=== PATIENT | female | born 1965 | race Caucasian/White ===

== ENCOUNTER → 2019-07-10 14:16 | Outpatient (BNVA) | payer OTHER, SELFPAY | PROVIDERS: Family Provider Family Medicine; Visit Provider Specialist | DX: G35 Multiple sclerosis (principal); Z79.891 Long term (current) use of opiate analgesic | CPT/HCPCS: 99212 ==

== ENCOUNTER → 2019-11-19 11:05 | Outpatient (BNVA) | payer OTHER, SELFPAY | PROVIDERS: Family Provider Family Medicine; PCP Family Medicine; Visit Provider Family Medicine | DX: E55.9 Vitamin D deficiency, unspecified (principal); E03.9 Hypothyroidism, unspecified | CPT/HCPCS: 80053; 80061; 82306; 84439; 84443; 84480; 85025 ==

== ENCOUNTER → 2019-12-04 13:56 | Outpatient (BNVA) | payer OTHER, SELFPAY | PROVIDERS: Family Provider Family Medicine; Visit Provider Nurse Practitioner | DX: M79.671 Pain in right foot (principal) | CPT/HCPCS: 73630 ==

== ENCOUNTER → 2019-12-31 14:38 | Outpatient (BNVA) | payer OTHER, SELFPAY | PROVIDERS: Family Provider Family Medicine; Visit Provider Specialist | DX: G35 Multiple sclerosis (principal); M72.2 Plantar fascial fibromatosis | CPT/HCPCS: 99214 ==

== ENCOUNTER → 2020-02-07 11:33 | Outpatient (BNVA) | payer OTHER, SELFPAY | PROVIDERS: Family Provider Family Medicine; Visit Provider Nurse Practitioner Family | DX: Z11.59 Encounter for screening for other viral diseases (principal); J06.9 Acute upper respiratory infection, unspecified | CPT/HCPCS: 87635 ==

== ENCOUNTER 2020-03-12 06:00 | Outpatient (RCR) | payer OTHER, SELFPAY | END 2020-03-28 23:59 | disposition home or self-care (01) | LOC: SPT 06:00 | PROVIDERS: PCP Family Medicine; Referring Provider Podiatrist Foot & Ankle Surgery; Visit Provider Podiatrist Foot & Ankle Surgery | DX: M72.2 Plantar fascial fibromatosis (principal) | CPT/HCPCS: 97035; 97110; 97140; 97161 ==

== ENCOUNTER 2020-03-29 06:00 | Outpatient (RCR) | payer OTHER, SELFPAY | END 2020-04-27 23:59 | disposition home or self-care (01) | LOC: SPT 06:00 | PROVIDERS: PCP Family Medicine; Referring Provider Podiatrist Foot & Ankle Surgery; Visit Provider Podiatrist Foot & Ankle Surgery | DX: M72.2 Plantar fascial fibromatosis (principal) | CPT/HCPCS: 97035; 97140 ==

== ENCOUNTER 2020-05-07 07:38 | Outpatient (CLI) | payer OTHER, SELFPAY ==
--- NOTE | 2020-05-07 07:50 | MM_ITS ---
WS: [id number] BILATERAL DIGITAL SCREENING MAMMOGRAPHY WITH CAD CLINICAL INFORMATION: SCREENING HISTORY: Screening mammogram. No current complaints. COMPARISON: TECHNIQUE: Bilateral CC and MLO views. FINDINGS: Scattered fibroglandular densities bilaterally. Stable asymmetric breast tissue upper outer left [address]. No suspicious focal mass, asymmetry, calcifications, or architectural distortion. No evidence of malignancy. MM/[id number] IMPRESSION: BI-RADS: 1-Negative FOLLOW UP: 1 Year Follow-up Recommend return to annual screening mammography.
== END 2020-05-07 07:39 | disposition home or self-care (01) ==
LOC: RADSHAW 07:42
PROVIDERS: PCP Family Medicine; Visit Provider Family Medicine
DX: Z12.31 Encounter for screening mammogram for malignant neoplasm of breast (principal)
CPT/HCPCS: 77067

== ENCOUNTER → 2020-12-25 13:45 | Outpatient (BNVA) | payer OTHER, SELFPAY | PROVIDERS: PCP Family Medicine; Visit Provider Family Medicine | DX: E03.9 Hypothyroidism, unspecified (principal) | CPT/HCPCS: 84439; 84443 ==

== ENCOUNTER → 2020-12-29 08:52 | Outpatient (BNVA) | payer OTHER, SELFPAY | PROVIDERS: PCP Family Medicine; Visit Provider Specialist | DX: G35 Multiple sclerosis (principal); M72.2 Plantar fascial fibromatosis | CPT/HCPCS: 99213 ==

== ENCOUNTER 2021-01-25 10:26 | Outpatient (CLI) | payer OTHER, SELFPAY ==
--- NOTE | 2021-01-25 10:37 | USCV_ITS ---
Gudelia Peoples Age: 55 Gender: F : 1965 Exam Date: 01/25/2021 10:51 Ordering Phys: Gale Lorenzana DO Technologist: NIGEL [place] [facility] [place]: BILAT LE SWELLING BP: 139 / 90 HR: 83 Rhythm: Sinus Technical Quality: Adequate MEASUREMENTS (Male / Female) Normal Values 2D ECHO LV Diastolic Diameter PLAX 3.4 cm 4.2 - 5.9 / 3.9 - 5.3 cm LV Systolic Diameter PLAX 2.1 cm IVS Diastolic Thickness 0.7 cm 0.6 - 1.0 / 0.6 - 0.9 cm IVS Systolic Thickness 0.7 cm LVPW Diastolic Thickness 1.9 cm 0.6 - 1.0 / 0.6 - 0.9 cm LVPW Systolic Thickness 2.2 cm LVOT Diameter 2.0 cm LV Ejection Fraction 2D Teich 69.0 % LV Ejection Fraction MOD 2C 72.6 % LV Ejection Fraction 2C AL 73.7 % LA Diameter 3.0 cm LA Width 3.1 cm LA Height 3.9 cm RA Width 2.9 cm RA Height 4.0 cm Aorta at Sinotubular Diameter 2.4 cm DOPPLER AV Peak Velocity 136.0 cm/s LVOT Peak Velocity 90.0 cm/s AV Area Cont Eq vti 2.3 cm squared AV Area Cont Eq pk 2.1 cm squared MV Peak Velocity 356.0 cm/s MV Area PHT 3.7 cm squared Mitral E to A Ratio 0.9 MV E' Velocity 41.5 cm/s Mitral E to MV E' Ratio 8.1 Mitral E to LV E' Lateral Ratio 8.5 Mitral E to LV E' Septal Ratio 7.7 TR Peak Velocity 123.7 cm/s TR Peak Gradient 6.1 mmHg TR Mean Velocity 88.4 cm/s TR Mean Gradient 3.1 mmHg TR Velocity Time Integral 23.2 cm RV Acceleration Time 0.1 s RV Ejection Time 0.3 s RV AcT/ET 0.2 FINDINGS Left Ventricle Normal left ventricular cavity size. Normal left ventricular systolic function. No regional wall motion abnormalities. Left ventricular ejection fraction is estimated at 69 %. No regional wall motion abnormalities. Grade I/IV diastolic dysfunction (abnormal relaxation filling pattern), normal to mildly elevated filling pressures. Right Ventricle The right ventricle is normal in size and function. RVSP could not be calculated due to incomplete tricuspid regurgitation velocity profile. Right Atrium The right atrium is normal in size. Left Atrium The left atrium is normal in size. Mitral Valve Moderately thickened mitral valve. Moderate mitral annular calcification. No mitral valve stenosis. Mild mitral valve regurgitation. Aortic Valve Aortic valve sclerosis without stenosis or regurgitation. Tricuspid Valve Structurally normal tricuspid valve without significant stenosis or regurgitation. Pulmonic Valve Structurally normal pulmonic valve without significant stenosis. There is no pulmonic regurgitation. Pericardium Normal pericardium without effusion. Aorta Normal ascending aorta dimension. CONCLUSIONS 1-Normal left ventricular cavity size. Normal left ventricular systolic function. No regional wall motion abnormalities. Left ventricular ejection fraction is estimated at 69 %. No regional wall motion abnormalities. Grade I/IV diastolic dysfunction (abnormal relaxation filling pattern), normal to mildly elevated filling pressures. 2-Moderately thickened mitral valve. Moderate mitral annular calcification. No mitral valve stenosis. Mild mitral valve regurgitation. 3-Aortic valve sclerosis without stenosis or regurgitation. 4-There is no pericardial effusion. 5-Right atrial pressure is around 5 mm of mercury. 6-There are no prior echocardiogram studies to compare. Jovita Chahal MD (Electronically Signed) Final Date: 25 January 2021 21:18 S
== END 2021-01-25 10:27 | disposition home or self-care (01) ==
PROVIDERS: PCP Family Medicine; Visit Provider Family Medicine
DX: R06.01 Orthopnea (principal); M79.89 Other specified soft tissue disorders; I34.0 Nonrheumatic mitral (valve) insufficiency; I35.8 Other nonrheumatic aortic valve disorders
CPT/HCPCS: 80053; 80061; 82306; 83880; 85025; 93306

== ENCOUNTER → 2021-02-26 10:12 | Outpatient (BNVA) | payer OTHER, SELFPAY | PROVIDERS: PCP Family Medicine; Visit Provider Family Medicine | DX: R06.00 Dyspnea, unspecified (principal); G35 Multiple sclerosis; G47.10 Hypersomnia, unspecified; Z68.35 Body mass index [BMI] 35.0-35.9, adult; F17.211 Nicotine dependence, cigarettes, in remission; Z71.89 Other specified counseling | CPT/HCPCS: 80048 ==

== ENCOUNTER → 2021-03-25 15:44 | Outpatient (BNVA) | payer OTHER, SELFPAY | PROVIDERS: PCP Family Medicine; Visit Provider Internal Medicine Cardiovascular Disease | DX: I50.33 Acute on chronic diastolic (congestive) heart failure (principal); R06.00 Dyspnea, unspecified; R06.02 Shortness of breath | CPT/HCPCS: 80048; 83880; 85379 ==

== ENCOUNTER 2021-05-10 06:57 | Outpatient (CLI) | payer OTHER, SELFPAY ==
--- NOTE | 2021-05-10 07:02 | MM_ITS ---
WS: [id number] BILATERAL SCREENING DIGITAL MAMMOGRAM WITH CAD HISTORY: SCREENING COMPARISON: 05/07/2020, 04/26/2019 and 04/11/2017 Bilateral CC and MLO views submitted. Computer aided detection analyzed. Breast composition: There are scattered areas of fibroglandular density. No suspicious masses, microc alcifications or architectural distortion. Long-term stability 6 mm asymmetry seen best on the LEFT M LO projection in the central breast. No suspicious masses or calcifications. MM/[id number] IMPRESSION: BI-RADS: 2-Benign FOLLOW UP: 1 Year Follow-up
== END 2021-05-10 06:58 | disposition home or self-care (01) ==
LOC: RADSHAW 06:59
PROVIDERS: PCP Family Medicine; Visit Provider Family Medicine
DX: Z12.31 Encounter for screening mammogram for malignant neoplasm of breast (principal)
CPT/HCPCS: 77067

== ENCOUNTER 2022-04-04 11:13 | Emergency (ER) | payer BC, SELFPAY ==
[2022-04-04 11:33] VITALS: BP 128/89; BP 97/69; PULSE 108; PULSE 91; RESP 16; TEMP 37.1; TEMP 37.8; O2SAT 97; O2SAT 98
--- NOTE | 2022-04-04 11:51 | W.ED.ABDPA2 ---
HPI - Abdominal Pain General: Chief Complaint: Abdominal Pain Stated Complaint: Dr. Lorenzana sent for abd pain Time Seen by Provider: 04/04/22 11:50 History of Present Illness: Ms. Peoples is a 56-year-old lady with significant past medical history of MS, history of cholecystectomy and appendectomy, thyroid disorder presenting to the emergency department due to right upper quadrant abdominal pain. Onset of symptoms was proximately 3 days ago and subacute. She denies specific provoking event. Right upper quadrant pain with radiation up to the neck and right shoulder and around to the back. Denies associated fevers, nausea, vomiting, change in bowel habits, or urinary symptoms. Chest symptoms have largely resolved however abdominal pain has persisted. Moderate to severe in intensity. Worsened by palpation and movement. No other specific changes in health, exacerbating, or alleviating factors identified. Onset (ago): day(s) Pain Consistency: constant Location: RUQ Severity: moderate Quality: dull Radiation: chest Migration to: no migration Exacerbating factors: movement Relieving factors: nothing Review of Systems General: Reports: 10 or more systems reviewed and unremarkable except in HPI and below PFSH ED PFSH: Medical History Heart murmur History of pyloric stenosis as a child Hypothyroidism Multiple sclerosis Surgical History H/O section H/O total vaginal hysterectomy History of appendectomy History of cholecystectomy Family History Daughter Anesthesia complication Family/Other CAD (coronary artery disease) Grandmother CAD (coronary artery disease) Grandfather Cancer Mother Stroke Other Diabetes Denies family history of Clotting disorder Dementia Chronic kidney disease (CKD) Suicide Bleeding disorder Lung disease Hypertension Social History Smoking and tobacco status: former smoker Quit status (tobacco): has quit using tobacco Year quit tobacco: 2001 Alcohol intake: never History of recent travel: No Physical Exam Const: COMMON NORMALS: alert GENERAL APPEARANCE: cooperative and well developed HENMT: COMMON NORMALS: normocephalic and atraumatic HEAD & SCALP: normocephalic and atraumatic Eye: COMMON NORMALS: conjunctivae normal CONJUNCTIVA: Yes conjunctivae normal SCLERA: sclerae normal Neck/C-Spine: COMMON NORMALS: supple GENERAL: Yes trachea midline Resp: COMMON NORMALS: clear to auscultation bilaterally EFFORT & INSPECTION: Yes able to speak in complete sentences AUSCULTATION: clear to auscultation bilaterally Cardio: COMMON NORMALS: regular rhythm RATE: tachycardic RHYTHM: regular rhythm GI: COMMON NORMALS: Soft to palpation PALPATION: Yes Soft to palpation, Yes Tenderness to palpation present (GI) Details: RUQ, No Guarding due to palpation present (GI) and No Rigid due to palpation Extremity: GENERAL: Yes normal exam except as noted and No edema Neuro: COMMON NORMALS: moves all extremities SENSORIUM/ORIENTATION: Yes alert and No Orientation impaired Psych: COMMON NORMALS: mental status grossly normal and Normal thought process present THOUGHT PROCESS: Normal thought process present Course Vital Signs: Vital signs: Vital Signs Temperature 100.1 F H 04/04/22 11:33 Pulse Rate 79 04/04/22 14:19 Respiratory Rate 16 04/04/22 14:19 Blood Pressure 116/83 04/04/22 14:19 Pulse Oximetry 98 04/04/22 11:33 Oxygen Delivery Me thod 04/04/22 11:33 MDM - Abdominal Pain Medical Decision Making 56-year-old lady presenting with abdominal pain. Exam as above. EKG shows sinus rhythm with nonspecific ST segment abnormalities, no STEMI. Labs notable for no leukocytosis, normal hemoglobin. Metabolic panel with perhaps mild evidence of dehydration, hypokalemia is mild. No evidence of UTI. Chest x-ray with no lobar consolidation or pneumothorax. No acute pathology identified on CT abdomen pelvis to explain symptoms. Biliary findings discussed with patient, she is adamant about history cholecystectomy. Regardless appears benign per radiology. Upon reassessment patient proved with analgesia and IV fluids. Mostly because of patient's symptoms is unspecified abdominal pain. The results of ED evaluation were discussed with the patient including prescriptions and/or symptomatic cares (if applicable) including appropriate and responsible use, followup plan, and return precautions. The patient verbalized understanding and felt safe for discharge. Medical Records I reviewed the patient's medical records. Lab Data I reviewed the patient's lab results. : 04/04/22 11:55 04/04/22 11:50 Labs/Radiology: Radiology Impressions Abdomen/Pelvis CT 04/04/22 12:04 IMPRESSION: 1. No CT evidence of acute intra-abdominal or pelvic pathology. 2. Additional findings, as above. ADDENDUM: 04/04/22 1538 ADDENDUM: Please note there is a structure in the gallbladder fossa resembling a normal gallbladder, which appears to connect with the biliary tree. Given that the patient is reportedly status post cholecystectomy, a dilated cystic duct remnant or (less likely) postoperative seroma could produce a similar appearance. Chest X-Ray 04/04/22 12:07 Impression: Negative chest. Laboratory Results WBC 5.7 10^3/uL (4.0-10.0) 04/04/22 11:55 RBC 4.43 10^6/uL (4.1-5.3) 04/04/22 11:55 Hgb 12.3 g/dL (11.5-15.3) 04/04/22 11:55 Hct 38.0 % (37.0-47.0) 04/04/22 11:55 MCV 85.8 fl (81-99) 04/04/22 11:55 MCH 27.8 pg (28.0-34.0) L 04/04/22 11:55 MCHC 32.4 g/dL (30.0-36.0) 04/04/22 11:55 RDW 13.5 % (12.1-15.1) 04/04/22 11:55 Plt Count 300 10^3/cmm (130-400) 04/04/22 11:55 MPV 10.6 fL (7.4-10.4) H 04/04/22 11:55 Neut % (Auto) 66.7 % 04/04/22 11:55 Lymph % (Auto) 27.1 % 04/04/22 11:55 Taylor % (Auto) 4.6 % 04/04/22 11:55 Eos % (Auto) 0.5 % 04/04/22 11:55 Baso % (Auto) 0.7 % 04/04/22 11:55 Neut # (Auto) 3.79 10^3/uL (1.8-7.7) 04/04/22 11:55 Lymph # (Auto) 1.5 10^3/uL (0.8-4.8) 04/04/22 11:55 Taylor # (Auto) 0.3 10^3/uL (0.2-0.9) 04/04/22 11:55 Eos # (Auto) 0.0 10^3/uL (0.0-0.8) 04/04/22 11:55 Baso # (Auto) 0.0 10^3/uL (0.0-0.1) 04/04/22 11:55 Nucleated RBC % (auto) 0 % 04/04/22 11:55 Nucleated RBCs # 0.0 /100WBC 04/04/22 11:55 Sodium 135 mmol/L (136-145) L 04/04/22 11:50 Potassium 3.3 mmol/L (3.5-5.1) L 04/04/22 11:50 Chloride 97 mmol/L (98-107) L 04/04/22 11:50 Carbon Dioxide 27 mmol/L (22-29) 04/04/22 11:50 Anion Gap 14.3 (5-19) 04/04/22 11:50 BUN 13 mg/dL (6-20) 04/04/22 11:50 Creatinine 0.8 mg/dL (0.5-0.9) 04/04/22 11:50 GFR Calculation 74.2 mL/min (90-130) L 04/04/22 11:50 Glucose 77 mg/dL (65-115) 04/04/22 11:50 Calculated Osmolality 279 mOsm/kg (285-295) L 04/04/22 11:50 Calcium 10.0 mg/dL (8.5-10.5) 04/04/22 11:50 Total Bilirubin 0.9 mg/dL (0.15-1.2) 04/04/22 11:50 AST 15 U/L (0-32) 04/04/22 11:50 ALT 17 U/L (0-33) 04/04/22 11:50 Alkaline Phosphatase 115 U/L (35-105) H 04/04/22 11:50 Total Protein 8.5 g/dL (6.6-8.7) 04/04/22 11:50 Albumin 4.6 g/dL (3.5-5.2) 04/04/22 11:50 Globulin 3.9 g/dL (1.3-4.6) 04/04/22 11:50 Lipase 36 U/L (13-60) 04/04/22 11:50 Urine Color Straw (Yellow) 04/04/22 11:55 Urine Appearance Clear (CLEAR) 04/04/22 11:55 Urine pH 5 (5-7) 04/04/22 11:55 Ur Specific [place] 1.010 (1.005-1.030) 04/04/22 11:55 Urine Protein Neg (Negative) 04/04/22 11:55 Urine Glucose (UA) Norm (Normal) 04/04/22 11:55 Urine Ketones Negative (Negative) 04/04/22 11:55 Urine Blood Neg (Negative) 04/04/22 11:55 Urine Nitrate Negative (Negative) 04/04/22 11:55 Urine Bilirubin Neg (Negative) 04/04/22 11:55 Urine Urobilinogen Norm mg/dL (Negative) 04/04/22 11:55 Ur Leukocyte Esterase Negative (Negative) 04/04/22 11:55 Discharge Plan Discharge Patient Disposition: Home Clinical Impression: Abdominal pain Condition: Stable Prescriptions: No Action Premarin 0.625 mg/gram cream 0.625 mg vaginal .COMPLEX Qty: 30 5RF Rx Instructions: as directed prn cholecalciferol (vitamin D3) 50 mcg (2,000 unit) capsule 50 mcg PO DAILY tramadol 50 mg tablet 50 mg PO Q6H PRN (Reason: pain) Qty: 28 0RF Vitamin B-12 1,000 mcg Tablet 1,000 mcg PO DAILY Vitamin C 500 mg Tablet 500 mg PO DAILY Excedrin Migraine 250-250-65 mg Tablet 1 tab PO Q6H PRN (Reason: Migraine Headache) levothyroxine 75 mcg tablet 75 mcg PO QAM bumetanide 0.5 mg tablet 0.5 mg PO QAM Zyrtec 10 mg Tablet 10 mg PO DAILY Discharge Orders: Discharge ED (Routine); Ordered 04/04/22 Ordered By: Jani Allen Referrals: Gale Lorenzana DO [Primary Care Provider] - Discharge Diet: Advance as tolerated and Clear Liquid Discharge Activity: Increase activity as tolerated Patient Instructions: Abdominal Pain (ED), Opioid Safety, Pain Management Activity Restrictions/Additional Instructions: Thank you for visiting the emergency department. You were seen evaluated for abdominal pain. The exact cause of your symptoms is unclear though does not appear to need hospitalization at this time. I would expect improvement at the next few days. I recommend sticking to a clear liquid diet and advancing as tolerated with bland foods. Please follow-up with a primary care provider. Return to the emergency department for worsening symptoms or anything else that you are concerned about a feel needs emergency department evaluation. Stand Alone Forms: Work/School Release Coding Level of Care Code ED Commercial Collections Driver for Lei Fwd Exam Comprehensive
--- NOTE | 2022-04-04 12:04 | CTR_ITS ---
PROCEDURE INFORMATION: Exam: CT Abdomen And Pelvis With Contrast Exam date and time: 04/04/2022 12:14 PM Age: 56 years old Clinical indication: Pain; Localized; Right upper quadrant (ruq); Prior surgery; Surgery date: 6+ months; Surgery type: Gallbladder, appendix, 2x c section; Additional info: Ruq pain TECHNIQUE: Imaging protocol: Computed tomography of the abdomen and pelvis with contrast. Axial, coronal and sagittal reformatted images were created and reviewed. Contrast material: OMNI 350; Contrast volume: 100 ml; Contrast route: INTRAVENOUS (IV); COMPARISON: No relevant prior studies available. RADIATION DOSE METRICS: Total DLP (mGy-cm): 724.46 FINDINGS: Liver: Benign-appearing 3.7 x 1.4 cm cystic lesion along the posterior margin of the right hepatic border. Gallbladder and bile ducts: No radiodense gallstones. No biliary ductal dilatation. Pancreas: Unremarkable. Spleen: Unremarkable. Adrenal glands: Normal. No mass. Kidneys and ureters: No mass. No radiodense calculi. No hydronephrosis. Stomach and bowel: No bowel wall thickening. No obstruction. No pneumatosis. Appendix: Status post appendectomy by history. Intraperitoneal space: No free fluid. No organized fluid collection. No free air. Vasculature: Unremarkable. No aneurysm. Lymph nodes: No pathologically enlarged lymph nodes. Urinary bladder: Unremarkable as visualized. Reproductive: Status post hysterectomy. Bones/joints: No acute osseous abnormality. Osteopenia. Mild degenerative changes. Soft tissues: Unremarkable. CT/CT abdomen pelvis w con* [id number] IMPRESSION: 1. No CT evidence of acute intra-abdominal or pelvic pathology. 2. Additional findings, as above.
[2022-04-04 12:05] VITALS: RESP 16
[2022-04-04] MEDS: sodium chloride 0.9% 1,000 ML 999 ML IV (12:05)
[2022-04-04] MEDS: morphine 4 mg/mL SDV 1 mL IVP ×2 (12:05→14:00)
[2022-04-04 12:07] LABS: Add Urine Microscopic? NO; Charge for UA Resulting for Rev
--- NOTE | 2022-04-04 12:07 | XR_ITS ---
WS: [id number] Portable AP upright chest, 04/04/2022 Clinical Data: r chest pain Comparison: None. Findings: No nodules, masses or effusions are seen. The heart is normal. The pulmonary vascularity is not increased. No pneumonia or pneumothorax is seen. XR/XR chest 1V portable [id number] Impression: Negative chest.
[2022-04-04 12:12] LABS: Basophils % 0.7 %; Eosinophils % 0.5 %; Hemoglobin 12.3 g/dL (11.5-15.3); Lymphocytes # 1.5 10^3/uL (0.8-4.8); Lymphocytes % 27.1 %; Mean Corpuscular HGB Conc 32.4 g/dL (30.0-36.0); Mean Corpuscular Hemoglobin 27.8 pg (28.0-34.0); Mean Corpuscular Volume 85.8 fl (81-99); Mean Platelet Volume 10.6 fL (7.4-10.4); Monocytes # 0.3 10^3/uL (0.2-0.9); Monocytes % 4.6 %; Neutrophils # 3.79 10^3/uL (1.8-7.7); Neutrophils % 66.7 %; Nucleated Red Blood Cells % 0 %; Platelet Count 300 10^3/cmm (130-400); Red Blood Count 4.43 10^6/uL (4.1-5.3); Red Cell Distribution Width 13.5 % (12.1-15.1); White Blood Count 5.7 10^3/uL (4.0-10.0)
[2022-04-04 12:20] LABS: Bilirubin Urine Neg (Negative); Blood Urine Neg (Negative); Glucose Urine UA Norm (Normal); Ketones Urine Negative (Negative); Leukocyte Esterase Urine Negative (Negative); Nitrate Urine Negative (Negative); Protein Urine Neg (Negative); Urine Appearance Clear (CLEAR); Urine Color Straw (Yellow); Urobilinogen Urine Norm (Negative); pH Urine 5 (5-7)
[2022-04-04] MEDS: iohexol 350 mg/mL 500 mL Btl (per mL) IV (12:30)
[2022-04-04 12:36] LABS: Alanine Aminotransferase 17 U/L (0-33); Albumin Level 4.6 g/dL (3.5-5.2); Alkaline Phosphatase 115 U/L (35-105); Anion Gap 14.3 (5-19); Aspartate Amino Transferase 15 U/L (0-32); Blood Urea Nitrogen 13 mg/dL (6-20); Carbon Dioxide 27 mmol/L (22-29); Chloride 97 mmol/L (98-107); Globulin 3.9 g/dL (1.3-4.6); Glomerular Filtration Rate 74.2 mL/min (90-130); Glucose 77 mg/dL (65-115); Lipase 36 U/L (13-60); Osmolality Calculated 279 mOsm/kg (285-295); Potassium 3.3 mmol/L (3.5-5.1); Sodium 135 mmol/L (136-145); Total Bilirubin 0.9 mg/dL (0.15-1.2); Total Protein 8.5 g/dL (6.6-8.7)
--- NOTE | 2022-04-04 12:48 | ECG_ITS ---
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 Measurements Intervals [place] Rate: 78 P: 50 MN: 178 QRS: -26 QRSD: 92 T: -11 QT: 379 QTc: 433 Interpretive Statements SINUS RHYTHM BORDERLINE LEFT AXIS DEVIATION [QRS AXIS < -20] LOW QRS VOLTAGE IN PRECORDIAL LEADS [QRS DEFLECTION < 1.0 mV IN CHEST LEADS] POSSIBLE RIGHT VENTRICULAR CONDUCTION DELAY [RSR (QR) IN V1/V2] MODERATE VOLTAGE CRITERIA FOR LVH, CONSIDER NORMAL VARIANT [MEETS CRITERIA IN ONE OF: R(aVL), S(V1), R(V5), R(V5/V6)+S(V1)] No previous ECG available for comparison Electronically Signed On 04-05-2022 12:11:53 SHIPFITTER HELPER by Evelyn Plasencia M.D. [id number]
[2022-04-04 14:00] VITALS: RESP 16
[2022-04-04 14:19] VITALS: BP 116/83; PULSE 79; RESP 16
== END 2022-04-04 14:20 | disposition home or self-care (01) ==
PROVIDERS: Emergency Provider Emergency Medicine; PCP Family Medicine
DX: R10.11 Right upper quadrant pain (principal); E86.0 Dehydration; E87.6 Hypokalemia
CPT/HCPCS: 71045; 74177; 80053; 81003; 83690; 85025; 93005; 96361; 96374; 96376; 99285; J2270; J7030; Q9967

== ENCOUNTER → 2022-12-12 10:10 | Outpatient (BNVA) | payer OTHER, SELFPAY | PROVIDERS: PCP Family Medicine; Visit Provider Family Medicine | DX: E03.9 Hypothyroidism, unspecified (principal); Z13.6 Encounter for screening for cardiovascular disorders | CPT/HCPCS: 80053; 80061; 84439; 84443; 85025 ==

== ENCOUNTER 2023-05-30 15:50 | Outpatient (CLI) | payer OTHER, SELFPAY ==
--- NOTE | 2023-05-30 16:00 | MR_ITS ---
WS: [id number] MRI HEAD WITH CONTRAST TECHNIQUE: Sagittal T1, T2 axial, T2 axial FLAIR, axial susceptibility weighted imaging, axial diffus ion weighted images, and coronal T2 images were obtained. Pre and post-T1 axial and post T1 coronal i mages. ADC and FSPGR images. CLINICAL INFORMATION: R26.9 - Unspecified abnormalities of gait and mobility COMPARISON: MRI 2019 FINDINGS: No evidence of restricted diffusion to suggest acute ischemia. Ventricular system and basal cisterns are patent. Mild patchy supratentorial white matter changes compatible with history of demyelinating disease. This is stable in appearance since 2019. No enhancing lesions to indicate active disease. No significant parenchymal volume loss. No atrophy of the corpus callosum. Mild T1 hypointense lesion load. Normal posterior fossa. Normal v ascular flow voids at the skull base. No extra-axial fluid collections. No evidence of mass or mass e ffect. Paranasal sinuses and mastoid air cells are well aerated. No hemosiderin on susceptibly weighted images.Small enhancing meningioma overlying the RIGHT inferior frontal lobe and RIGHT middle cranial fossa. No significant mass effect or edema. This measures appr oximately 1.5 x 0.6 cm. This is not well seen in 2019 due to lack of IV contrast. IMPRESSION: 1. Mild patchy supratentorial white matter changes compatible with history of demyelinating disease unchanged compared to previous. No significant progression. 2. No abnormal gadolinium enhancement. No enhancing lesions to indicate active disease. 3. No significant parenchymal volume loss. 4. Mild T1 hypointense lesion load 5. Small enhancing sphenoid wing en plaque meningioma overlying the RIGHT inferior frontal lobe and RIGHT middle cranial fossa. No significant mass effect or edema. This measures approximately 1.5 x 0. 6 cm.
[2023-05-30] MEDS: gadobenate dimeglumine 20 mL vial IV (16:46)
== END 2023-05-30 15:51 | disposition home or self-care (01) ==
LOC: RAD 15:51
PROVIDERS: PCP Family Medicine; Visit Provider Specialist
DX: R26.9 Unspecified abnormalities of gait and mobility (principal); R29.90 Unspecified symptoms and signs involving the nervous system; D32.0 Benign neoplasm of cerebral meninges; G37.9 Demyelinating disease of central nervous system, unspecified
CPT/HCPCS: 70553; A9577

== ENCOUNTER 2023-05-31 15:50 | Outpatient (CLI) | payer OTHER, SELFPAY ==
--- NOTE | 2023-05-31 16:00 | MR_ITS ---
WS: [id number] MR CERVICAL SPINE WO/W COMPARISON: MRI 2019 HISTORY: R26.9 - Unspecified abnormalities of gait and mobility TECHNIQUE: Sagittal T1, T2 and T2 inversion recovery; axial T2, T2 gradient and fiesta. Post gadolini um imaging with fat saturation technique. FINDINGS:Straightening of the normal cervical lordosis. No high grade central canal narrowing. Chroni c demyelinating lesions in the cervical cord. These are more prominent at C2-C3 and C4 unchanged. Dis c osteophyte protrusion at C6-7. No abnormal gadolinium enhancement to indicate active disease. No co rd atrophy. C2-3: Spinal canal and foramen are patent. C3-4: Mild facet arthropathy. Mild LEFT bony foraminal narrowing. Spinal canal is patent. C4-5: Mild disc bulging with osteophytic ridging. Moderate facet arthropathy. Mild LEFT bony foramina l narrowing. C5-6: Mild facet arthropathy. Spinal canal and foramen are patent. C6-7: LEFT paracentral disc osteophyte protrusion with slight indentation of the cervical cord. Mild LEFT bony foraminal narrowing. C7-T1: Mild LEFT C7-T1 bony foraminal narrowing. RIGHT foramen is patent. Spinal canal is patent. IMPRESSION: 1. Straightening of the normal cervical lordosis. No high-grade central canal narrowing. 2. Disc osteophyte complex C5-C6 with slight contact of the LEFT ventral cervical cord similar to pr evious. Mild LEFT bony foraminal narrowing at this level. 3. Chronic demyelinating lesions in the cervical cord at C2 and C4. No enhancing lesions to indicate active disease. 4. No abnormal gadolinium enhancement. 5. No significant cord atrophy.
[2023-05-31] MEDS: gadobenate dimeglumine 20 mL vial IV (16:39)
== END 2023-05-31 15:51 | disposition home or self-care (01) ==
LOC: RAD 15:51
PROVIDERS: PCP Family Medicine; Visit Provider Specialist
DX: R26.9 Unspecified abnormalities of gait and mobility (principal); R29.90 Unspecified symptoms and signs involving the nervous system; M25.78 Osteophyte, vertebrae; M48.02 Spinal stenosis, cervical region; G95.89 Other specified diseases of spinal cord
CPT/HCPCS: 72156; A9577

== ENCOUNTER 2023-06-01 15:52 | Outpatient (CLI) | payer OTHER, SELFPAY ==
--- NOTE | 2023-06-01 16:00 | MR_ITS ---
WS: [id number] MRI THORACIC SPINE WITH CONTRAST TECHNIQUE: Sagittal T1, T2 and STIR imaging. Axial T2 imaging. Post gadolinium imaging was obtained. CLINICAL INFORMATION: R26.9 - Unspecified abnormalities of gait and mobility COMPARISON: None. FINDINGS: Moderate thoracic kyphosis. No acute compression. No high-grade central canal stenosis. Cord signal is normal. No acute enhancing or chronic demyelinating plaques within the thoracic cord. No significant cord atrophy. Prominent central disc osteophyte protrusion T7-T8 with indentation on t he thoracic cord. No significant central canal stenosis. Small esophageal hiatal hernia. Normal caliber thoracic aorta. Adrenal glands are normal. IMPRESSION: 1. Moderate thoracic kyphosis. 2. No enhancing demyelinating lesions in the thoracic cord. 3. No visualized chronic demyelinating plaques. 4. No significant cord atrophy. 5. Prominent central disc osteophyte protrusion at T7-T8 with indentation on the thoracic cord. No s ignificant central canal stenosis. 6. No other acute findings.
[2023-06-01] MEDS: gadobenate dimeglumine 20 mL vial IV (16:44)
== END 2023-06-01 15:53 | disposition home or self-care (01) ==
LOC: RAD 15:52
PROVIDERS: PCP Family Medicine; Visit Provider Specialist
DX: R26.9 Unspecified abnormalities of gait and mobility (principal)
CPT/HCPCS: 72157; A9577

== ENCOUNTER 2023-07-05 07:47 | Outpatient (CLI) | payer OTHER, SELFPAY ==
--- NOTE | 2023-07-05 07:54 | MM_ITS ---
WS: [id number] BILATERAL SCREENING DIGITAL TOMOSYNTHESIS MAMMOGRAM WITH CAD HISTORY: screening COMPARISON: 05/10/2021, 05/07/2020 Bilateral CC and MLO views with tomosynthesis and synthetic mammography submitted. Computer aided det ection analyzed. Breast composition: There are scattered areas of fibroglandular density. No suspicious masses, microc alcifications or architectural distortion. Long-term stability of a mass at 12:00 LEFT breast measuri ng 7 mm. This may be a benign lymph node. There is an additional asymmetry in the medial LEFT breast which is stable also. IMPRESSION: MM/[place] [id number] BI-RADS: 2-Benign FOLLOW UP: 1 Year Follow-up
== END 2023-07-05 07:48 | disposition home or self-care (01) ==
LOC: RAD 07:47
PROVIDERS: PCP Family Medicine; Visit Provider Family Medicine
DX: Z12.31 Encounter for screening mammogram for malignant neoplasm of breast (principal); R92.323 Mammographic fibroglandular density, bilateral breasts; N63.25 Unspecified lump in the left breast, overlapping quadrants; N64.89 Other specified disorders of breast
CPT/HCPCS: 77063; 77067

== ENCOUNTER 2024-01-10 06:16 | Outpatient (CLI) | payer OTHER, SELFPAY ==
--- NOTE | 2024-01-10 06:15 | USCV_ITS ---
Gudelia Peoples Age: 58 Gender: F : 1965 Exam Date: 01/10/2024 06:29 Ordering Phys: Maribel Portre NP Technologist: RAJI Exam Location: [facility] – [place] Indication: SOB, MRV BP: 106 / 62 HR: 70 Rhythm: Sinus Technical Quality: Adequate MEASUREMENTS (Male / Female) Normal Values 2D ECHO LV Diastolic Diameter PLAX 5.0 cm 4.2 - 5.9 / 3.9 - 5.3 cm IVS Diastolic Thickness 1.3 cm 0.6 - 1.0 / 0.6 - 0.9 cm IVS Systolic Thickness 2.1 cm LVPW Diastolic Thickness 1.5 cm 0.6 - 1.0 / 0.6 - 0.9 cm LVPW Systolic Thickness 1.8 cm LVOT Diameter 2.0 cm LV Ejection Fraction 2D Teich 70.7 % LV Ejection Fraction MOD 4C 62.4 % LV Ejection Fraction MOD 2C 64.8 % LV Ejection Fraction 2C AL 66.9 % LA Diameter 2.7 cm RA Systolic Volume 4C AL 25.8 ml RA Systolic Volume 4C MOD 24.9 ml LA Sys Volume AL 28.3 cm cubed LA Sys Volume Index AL 13.4 cm cubed/m squared Aorta at Sinotubular Diameter 2.3 cm IVC Diameter 1.8 cm M-MODE LA Ao Ratio MM 0.9 AV Cusp Separation MM 1.8 cm DOPPLER AV Peak Velocity 157.0 cm/s LVOT Peak Velocity 110.0 cm/s AV Area Cont Eq vti 2.0 cm squared AV Area Cont Eq pk 2.2 cm squared MV Peak Velocity 199.3 cm/s MV Area PHT 5.2 cm squared Mitral E to A Ratio 0.9 TV Peak Velocity 190.5 cm/s TR Peak Velocity 208.5 cm/s TR Peak Gradient 17.4 mmHg TR Mean Velocity 178.0 cm/s TR Mean Gradient 14.2 mmHg TR Velocity Time Integral 68.4 cm TV Peak E Velocity 53.0 cm/s Right Atrial Pressure 3.0 mmHg Pulmonary Artery Systolic Pressu 20.4 mmHg PV Peak Velocity 92.0 cm/s RV Ejection Time 0.3 s FINDINGS Left Ventricle Normal left ventricular size, systolic function and wall thickness, with no regional wall motion abnormalities. Estimated ejection fraction appeared to be 65%. Grade I/IV diastolic dysfunction (abnormal relaxation filling pattern), normal to mildly elevated filling pressures. Right Ventricle The right ventricle is normal in size and function. Right Atrium The right atrium is normal in size. Left Atrium The left atrium is normal in size. Mitral Valve Structurally normal mitral valve without significant stenosis or prolapse. There is no mitral regurgitation. Aortic Valve Structurally normal aortic valve without significant sclerosis or stenosis. There is trace aortic regurgitation. Tricuspid Valve Mild tricuspid valve regurgitation. Structurally normal tricuspid valve. Pulmonic Valve Mild pulmonary valve regurgitation. Pericardium Normal pericardium without effusion. Aorta Normal ascending aorta dimension. IVC The inferior vena cava appears normal. CONCLUSIONS Normal left ventricular size, systolic function and wall thickness, with no regional wall motion abnormalities. Estimated ejection fraction appeared to be 65%. Grade I/IV diastolic dysfunction (abnormal relaxation filling pattern), normal to mildly elevated filling pressures. Structurally normal aortic valve without significant sclerosis or stenosis. There is trace aortic regurgitation. Mild tricuspid valve regurgitation. Structurally normal tricuspid valve. There is no pericardial effusion. Right atrial pressure is around 5 mm of mercury. Jovita Chahal MD (Electronically Signed) Final Date: 10 January 2024 20:38 S
== END 2024-01-10 06:17 | disposition home or self-care (01) ==
DX: R00.2 Palpitations (principal); R42 Dizziness and giddiness; E03.9 Hypothyroidism, unspecified
CPT/HCPCS: 80053; 82306; 84443; 84481; 85025; 93306

== ENCOUNTER → 2024-06-04 08:44 | Outpatient (BNVA) | payer BC, SELFPAY | PROVIDERS: PCP Family Medicine; Visit Provider Family Medicine | DX: E03.9 Hypothyroidism, unspecified (principal); K21.9 Gastro-esophageal reflux disease without esophagitis; D50.9 Iron deficiency anemia, unspecified; D32.9 Benign neoplasm of meninges, unspecified | CPT/HCPCS: 80061; 82607; 83550; 84439; 84443; 85025 ==

== ENCOUNTER → 2024-12-26 10:35 | Outpatient (BNVA) | payer OTHER, SELFPAY | PROVIDERS: PCP Family Medicine; Visit Provider Family Medicine | DX: D50.9 Iron deficiency anemia, unspecified (principal); M54.2 Cervicalgia; M54.9 Dorsalgia, unspecified; G89.29 Other chronic pain; I87.2 Venous insufficiency (chronic) (peripheral); G24.9 Dystonia, unspecified; Z76.89 Persons encountering health services in other specified circumstances | CPT/HCPCS: 80053; 83540; 85025 ==

== ENCOUNTER → 2025-02-11 09:43 | Outpatient (BNVA) | payer OTHER, SELFPAY | PROVIDERS: PCP Family Medicine; Visit Provider Family Medicine | DX: G35 Multiple sclerosis (principal); R53.83 Other fatigue; R06.02 Shortness of breath; R06.01 Orthopnea | CPT/HCPCS: 80053; 82607; 83540; 83880; 84439; 84443; 84481; 85025 ==

== ENCOUNTER 2025-02-26 08:40 | Outpatient (CLI) | payer OTHER, SELFPAY ==
--- NOTE | 2025-02-26 08:45 | MR_ITS ---
WS: [id number] MRI HEAD WITH CONTRAST TECHNIQUE: Sagittal T1, T2 axial, T2 axial FLAIR, axial susceptibility weighted imaging, axial diffusion weighted images, and coronal T2 images were obtained. Pre and post-T1 axial and post T1 coronal images. ADC and FSPGR images. CLINICAL INFORMATION: MS, worsening symptoms COMPARISON: 2023 FINDINGS: Moderate patchy supratentorial white matter changes compatible with history of demyelinating disease. This is progressed compared to previous. New enhancing lesion compatible with active disease about the LEFT occipital horn measuring 7 mm. No other visualized enhancing lesions. No restricted diffusion to suggest acute ischemia. Normal optic chiasm and pituitary infundibulum. Mild T1 hypointense lesion load. No significant parenchymal volume loss. Stable small small enhancing sphenoid wing en plaque meningioma overlying the RIGHT inferior frontal lobe and RIGHT middle cranial fossa. No significant mass effect or edema. This is unchanged compared to previous measuring 1.5 x 0.6 cm MR/MR head wo/w con [id number] IMPRESSION: 1. New enhancing 7 mm lesion adjacent to the LEFT occipital horn compatible wi th active demyelinating disease. 2. Stable small RIGHT sphenoid wing meningioma. Recommend continued annual noemí veillance.
[2025-02-26] MEDS: gadobenate dimeglumine 20 mL vial IV (09:38)
== END 2025-02-26 08:41 | disposition home or self-care (01) ==
PROVIDERS: PCP Family Medicine; Visit Provider Family Medicine
DX: G35.D Multiple sclerosis, unspecified (principal); D32.0 Benign neoplasm of cerebral meninges; G93.89 Other specified disorders of brain
CPT/HCPCS: 70553

== ENCOUNTER 2025-03-31 11:50 | Outpatient (CLI) | payer OTHER, SELFPAY | END 2025-03-31 11:51 | disposition home or self-care (01) | LOC: SLEEP 11:51 | PROVIDERS: Referring Provider Specialist; Visit Provider Internal Medicine Pulmonary Disease | DX: G47.33 Obstructive sleep apnea (adult) (pediatric) (principal); G47.10 Hypersomnia, unspecified; G35.D Multiple sclerosis, unspecified; G47.36 Sleep related hypoventilation in conditions classified elsewhere; R53.83 Other fatigue | CPT/HCPCS: G0399 ==

== ENCOUNTER 2025-04-01 06:59 | Outpatient (RCR) | payer OTHER, SELFPAY | END 2025-04-22 13:23 | disposition home or self-care (01) | LOC: SPT 06:59 | PROVIDERS: Visit Provider Specialist | DX: G35.D Multiple sclerosis, unspecified (principal); R26.89 Other abnormalities of gait and mobility; R26.81 Unsteadiness on feet | CPT/HCPCS: 97161 ==

== ENCOUNTER 2025-04-23 07:15 | Outpatient (CLI) | payer OTHER, SELFPAY ==
--- NOTE | 2025-04-23 07:15 | MR_ITS ---
WS: [id number] MR CERVICAL SPINE WO/W COMPARISON: 2023 HISTORY: G35 - Multiple sclerosis TECHNIQUE: Sagittal T1, T2 and T2 inversion recovery; axial T2, T2 gradient and fiesta. Post gadolinium imaging with fat saturation technique. FINDINGS: Mild spondylitic changes cervical spine. Numerous demyelinating lesions in the cervical cord. This is similar to previous. No significant disease progression. No enhancing lesions to indicate active disease. No significant cord atrophy. C2-3: Spinal canal and foramen are patent. C3-4: Mild LEFT bony foraminal narrowing. Spinal canal is patent. Mild facet arthropathy. C4-5: Disc osteophyte complex with endplate ridging. Moderate facet arthropathy. Mild LEFT bony foraminal narrowing. C5-6: Spinal canal and foramen are patent. Mild facet arthropathy. C6-7: Mild central canal stenosis with LEFT paracentral disc osteophyte protrusion. Slight indentation on the cervical cord. This appears stable. Mild LEFT foraminal narrowing. C7-T1: Mild LEFT C7-T1 bony foraminal narrowing. RIGHT foramen is patent. Spinal canal is patent. MR/MR cervical spine wo/w [id number] IMPRESSION: 1. Multiple demyelinating lesions visualized in the cervical cord similar to p revious. 2. No abnormal gadolinium enhancement to indicate active disease.. 3. No significant cord atrophy. 4. Mild spondylitic changes.
[2025-04-23] MEDS: gadobenate dimeglumine 20 mL vial IV (08:04)
== END 2025-04-23 07:16 | disposition home or self-care (01) ==
LOC: RAD 07:16
PROVIDERS: PCP Family Medicine; Visit Provider Specialist
DX: G35.D Multiple sclerosis, unspecified (principal); G37.89 Other specified demyelinating diseases of central nervous system; G37.9 Demyelinating disease of central nervous system, unspecified; M47.892 Other spondylosis, cervical region; M25.78 Osteophyte, vertebrae; M50.223 Other cervical disc displacement at C6-C7 level; M48.02 Spinal stenosis, cervical region; M48.03 Spinal stenosis, cervicothoracic region
CPT/HCPCS: 72156